=== PATIENT | female | born 1955 | race Caucasian/White ===

== ENCOUNTER 2018-10-28 14:52 | Observation (INO) | payer BC ==
--- OUTSIDE RECORDS SUMMARY | 2018-10-28 14:59 | XMS REPORT | Clinical Summary ---
:1955 Author Organization [facility] Address [address] [place] [address] Care Team Providers Name Role Phone Asked, No Pcp Primary Care Provider Unavailable Allergies Not on File Medications Not on file Active Problems Not on file Encounters Date Type Specialty Care Team Description 12/21/2017 Hospital Encounter Procedural Love Durant MD 12/14/2017 Hospital Encounter Procedural [facility] Cardiology G., MD unspecified type 12/14/2017 Hospital Encounter Procedural [facility] G., MD unspecified type 11/29/2017 Transcribe Orders Access Love Durant G., MD unspecified type (Primary Dx) after 10/27/2017 Social History Tobacco Use Types Packs/Day Years Used Date Never Assessed Sex Assigned at Date Recorded Not on file Job Start Date Occupation Industry Not on file Not on file Not on file Travel History Travel Start Travel End No recent travel history available. Last Filed Vital Signs Not on file Plan of Treatment Health Maintenance Due Date Last Done Comments BREAST CANCER SCREENING 2006 COLONOSCOPY SCREENING 2006 SHINGLES VACCINES (#1) 2006 INFLUENZA VACCINE 11/28/2018 Procedures Procedure Name Priority Date/Time Associated Comments Diagnosis NM MYOCARDIAL PERFUSION Routine 12/21/2017 11:41 Chest pain, Results for this STRESS REST 2 DAY AM CDT unspecified type procedure are in the results section. CV STRESS TEST NUCLEAR Routine 12/14/2017 2:09 Chest pain, Results for this CARDIO PM CDT unspecified type procedure are in the results section. ECHOCARDIOGRAM 2D Routine 12/14/2017 11:26 Chest pain, Results for this COMPLETE W MMODE AM CDT unspecified type procedure are in SPECTRAL COLOR DOPPLER the results (86320) section. after 10/27/2017 Results Cv myocardial perfusion (12/21/2017 11:41 AM CDT) Specimen Narrative Performed At [facility] Nuclear Cardiology and Cardiac CT [address] [address] Myocardial Perfusion Imaging Report Stress ECG tracings are available in [employer] and [employer] All ECG interpretations are included in this report Pat.Name:RASHEED CRANE MPat.ID:[id number] St.Date: 12/14/2017 Refer.MD:LOVE DURANT MD Exam Time: 10:40:00 AM Study Type:Myocardial Perfusion Imaging Height:64inDOBAge: 1955,62Y Sex: FEMALEBP:138/63 HR:68 bpm Nuclear Tech:Dafne Clark [facility]/Inna Andrade [facility],[place]/Kamaljit Osorio [facility] Pat. Stat.:OutpatientNuclear Event ID:[id number] Order ID:[id number] Reason for Study:Chest pain, unspecified* History / Clinical:COPD, Hyperlipidemia, Hypertension, Multiple DVT's Procedures:Two Day Stress / Rest Risk Factors:Hyperlipidemia, Hypertension, Family history of cardiovascular disease Clinical Symptoms:Regadenoson Physical Exam:S1, S2 Medications:xarelto, victoza, methotrexate, prednisone, protonix, spironilactone, allopurinol, synthroid SUMMARY: SCINTIGRAPHIC RESULTS Perfusion Defect Size (% LV) 0 % Total 0 % Ischemia 0 % Scar Left Ventricular Perfusion Results There is normal tracer distribution during stress and rest. Gated SPECT Results The post-stress left ventricular ejection fraction is 52 % with normal regional wall motion and left ventricular thickening.Left ventricular end-diastolic volume is 92 ml; end-systolic volume is44 ml. The left ventricle is of normal size at stress and at rest.The right ventricle is of normal size with normal wall motion. Conclusion Normal regadenoson Tc-99m tetrofosmin myocardial perfusion study. The left ventricular ejection fraction is normal. The mild reduction in anteroapical wall counts is probably due to breast attenuation artifact rather than coronary artery disease. Comments Patients with a normal stress myocardial perfusion study have a low (< 1%) annual risk of cardiac or nonfatal myocardial infarction. Study Quality/Artifacts The study quality is good. Comparison to Previous Study None available. STRESS: Baseline Vital Signs:Intervention: Regadenoson 0.4mg/5ml IV over 10 seconds followed by radiotracer injection and 5ml saline flush ECG: Normal Sinus Rhythm, Incomplete right bundle branch block HR:68 BP:138/63 Stress Test Results: Target HR: 135 Symptoms and Complications: Arrhythmias: None Terminated: As per Regadenoson protocol Symptoms:Headache, Shortness of breath Complications: none Conclusions: Normal heart rate response to pharmacological stress, Normal blood pressure response to pharmacological stress Stress ECG Interp: No ischemic ST segment change occurred with stress. Signed 12/21/2017 02:50 PM Jaylin Ruggiero MD Procedure Note Interface, Radiology Results In - 12/21/2017 2:50 PM CDT Nuclear Cardiology and Cardiac CT [address] [place] [address] Myocardial Perfusion Imaging Report Stress ECG tracings are available in [employer] and [employer] All ECG interpretations are included in this report Pat.Name: RASHEED CRANE Pat.ID: [id number] .Date: 12/14/2017 Refer.MD: LOVE DURANT MD Exam Time: 10:40:00 AM Study Type:Myocardial Perfusion Imaging Height: 64in Age: 5 1955,62Y Sex: FEMALE BP: 138/63 HR: 68 bpm Nuclear Tech:ANNA Lindsay/Inna GUILLENMT,[place]/Kamaljit Osorio [facility] Pat. Stat.:Outpatient Nuclear Event ID:[id number] Order ID: [id number] Reason for Study:Chest pain, unspecified* History / Clinical:COPD, Hyperlipidemia, Hypertension, Multiple DVT's Procedures:Two Day Stress / Rest Risk Factors:Hyperlipidemia, Hypertension, Family history of cardiovascular disease Clinical Symptoms:Regadenoson Physical Exam:S1, S2 Medications:xarelto, victoza, methotrexate, prednisone, protonix, spironilactone, allopurinol, synthroid SUMMARY: SCINTIGRAPHIC RESULTS Perfusion Defect Size (% LV) 0 % Total 0 % Ischemia 0 % Scar Left Ventricular Perfusion Results There is normal tracer distribution during stress and rest. Gated SPECT Results The post-stress left ventricular ejection fraction is 52 % with normal regional wall motion and left ventricular thickening. Left ventricular end-diastolic volume is 92 ml; end-systolic volume is 44 ml. The left ventricle is of normal size at stress and at rest. The right ventricle is of normal size with normal wall motion. Conclusion Normal regadenoson Tc-99m tetrofosmin myocardial perfusion study. The left ventricular ejection fraction is normal. The mild reduction in anteroapical wall counts is probably due to breast attenuation artifact rather than coronary artery disease. Comments Patients with a normal stress myocardial perfusion study have a low (< 1%) annual risk of cardiac or nonfatal myocardial infarction. Study Quality/Artifacts The study quality is good. Comparison to Previous Study None available. STRESS: Baseline Vital Signs: Intervention: Regadenoson 0.4mg/5ml IV over 10 seconds followed by radiotracer injection and 5ml saline flush ECG: Normal Sinus Rhythm, Incomplete right bundle branch block HR: 68 BP: 138/63 Stress Test Results: Target HR: 135 Symptoms and Complications: Arrhythmias: None Terminated: As per Regadenoson protocol Symptoms: Headache, Shortness of breath Complications: none Conclusions: Normal heart rate response to pharmacological stress, Normal blood pressure response to pharmacological stress Stress ECG Interp: No ischemic ST segment change occurred with stress. Signed 12/21/2017 02:50 PM Jaylin Ruggiero MD Performing Organization Address [facility] Phone Number [facility] [address] [place] [address] Cv exercise treadmill stress (no imaging) (12/14/2017 2:09 PM CDT) Resting HR 70 H MUSE Resting BP 138 H MUSE Peak MET Achieved 1.0 H MUSE Protocol Name [facility] MUSE Time in Exercise 00:01:00 [facility] MUSE Phase Max Systolic BP 170 [facility] MUSE Max Diastolic BP 82 [facility] MUSE Max Heart Rate 90 [facility] MUSE Max Predicted Heart 159 [facility] MUSE Rate Target HR Formula (220 - Age)*100% [facility] MUSE Test Indication chest pain [facility] MUSE Stress Test Waveform interpreted in [facility] MUSE Impression report associated with image study. No interpretation is provided as part of this Stress ECG report.-Electronically Signed By Nicolas BUENO, Jose Foss ([id number]), city editor Judith Hernandez ([id number]) on 12/14/2017 12:10:09 PM Target HR 135.15 bpm [facility] MUSE Specimen Performing Organization Address [facility] Phone Number [facility] MUSE [address] [place] [address] Echocardiogram complete w contrast and 3D if needed (12/14/2017 11:26 AM CDT) Specimen Narrative Performed At [facility] Echocardiography Report [address]Name:RASHEED CRANE [facility].ID:[id number] .Date: 12/14/2017 Refer.MD:LOVE DURANT MD Exam Time: 9:19:00 AMStudy Type:Routine Echo Height:64inWeight: 318lb BSA: 2.38 m2 DOBAge:1955,62Y Sex: FEMALEHR:69 bpm Sonogrphr: COSTA Vicente Pat. Stat.:Outpatient Study Status:Final Echo Event ID:[id number] Order ID:[id number] Reason for Study:CP Procedures:2D Echo, Colorflow Doppler SUMMARY: LV EF is normal. Overall wall motion is normal. RV systolic function is normal. FINDINGS: LV: LV size is normal. LV EF is normal. Overall wall motion is normal.Estimated EF is 60-64%. RV: RV size is normal. RV systolic function is normal. LA: LA size is normal. RA: RA size is normal. AO: Aortic root diameter is normal. THEO: No pericardial effusion. AV: Focal thickening of AV leaflets. MV: No structural MV abnormalities noted. PV: No structural PV abnormalities noted. TV: No structural TV abnormalities noted. Ortega: Unable to assess diastolic function. Other:Insufficient TR jet to estimate PA systolic pressure. MEASUREMENTS: 2D Paras[place] Ao An1.6 cmLVPWd0.7 cm LVOT 2.1 cmLA Ds3.8 cm LVIDd5.4 cmIndex2.3 cm/m Ao Rtd 3.4 cm Index1.4 cm/m LVIDs3.2 cmLV Mlvz242.9 g(87-129) LV%fs 40.7 % LVM Index 53.3 g/m2 IVSd 0.6 cmRWT0.3 LA Sng Plane LA Area 20.1 cm2(8.8-23.4) LA Vol56.6 ml Index23.8 ml/m LA LngAx 5.7 cm RA Sng Plane RA Area 15 cm2(8.3-19.5) RA Vol40.5 ml Index17 ml/m RA LngAx 4.4 cm DOPPLER LVOT Stroke Vol LVOT TVI25.1 cmLVOT CO3.9 l/min LVOT Tm357 msecLVOT CI1.6 l/m/m2 LVOT SV 57.6 mlHR68 bpm Signed 12/17/2017 11:41 AM Solis Fermin M.D. Procedure Note Interface, Radiology Results In - 12/17/2017 11:42 AM CDT Echocardiography Report [address] [address] Pat.Name: RASHEED CRANE Pat.ID: [id number] .Date: 12/14/2017 Refer.MD: LOVE DURANT MD Exam Time: 9:19:00 AM Study Type:Routine Echo Height: 64in Weight: 318lb BSA: 2.38 m2 Age: 6 1955,62Y Sex: FEMALE HR: 69 bpm Sonogrphr: COSTA Vicente Pat. Stat.:Outpatient Study Status:Final Echo Event ID:[id number] Order ID: [id number] Reason for Study:CP Procedures:2D Echo, Colorflow Doppler SUMMARY: LV EF is normal. Overall wall motion is normal. RV systolic function is normal. FINDINGS: LV: LV size is normal. LV EF is normal. Overall wall motion is normal. Estimated EF is 60-64%. RV: RV size is normal. RV systolic function is normal. LA: LA size is normal. RA: RA size is normal. AO: Aortic root diameter is normal. THEO: No pericardial effusion. AV: Focal thickening of AV leaflets. MV: No structural MV abnormalities noted. PV: No structural PV abnormalities noted. TV: No structural TV abnormalities noted. Ortega: Unable to assess diastolic function. Other: Insufficient TR jet to estimate PA systolic pressure. MEASUREMENTS: 2D Parasternal [place] Ao An 1.6 cm LVPWd 0.7 cm LVOT 2.1 cm LA Ds 3.8 cm LVIDd 5.4 cm Index 2.3 cm/m Ao Rtd 3.4 cm Index 1.4 cm/m LVIDs 3.2 cm LV Mass 126.9 g (87-129) LV%fs 40.7 % LVM Index 53.3 g/m2 IVSd 0.6 cm RWT 0.3 LA Sng Plane LA Area 20.1 cm2 (8.8-23.4) LA Vol 56.6 ml Index 23.8 ml/m LA LngAx 5.7 cm RA Sng Plane RA Area 15 cm2 (8.3-19.5) RA Vol 40.5 ml Index 17 ml/m RA LngAx 4.4 cm DOPPLER LVOT Stroke Vol LVOT TVI 25.1 cm LVOT CO 3.9 l/min LVOT Tm 357 msec LVOT CI 1.6 l/m/m2 LVOT SV 57.6 ml HR 68 bpm Signed 12/17/2017 11:41 AM Solis Fermin M.D. Performing Organization Address [facility] Phone Number [facility] [phone] [place] [address] after 10/27/2017 Advance Directives Patient has advance care planning documents on file. For more information, please contact:[facility] [place] [address]
--- OUTSIDE RECORDS SUMMARY | 2018-10-28 14:59 | XMS REPORT ---
:1955 [facility] Address [address] [place] [address] Care Team Providers Name Role Phone CHETAN ANDERSON Unavailable Unavailable Problems This patient has no known problems. Allergies, Adverse Reactions, Alerts This patient has no known allergies or adverse reactions. Medications This patient has no known medications. Results Test Description Test Time Test Comments Text Results Atomic Results Result Comments Glycosylated Hemoglobin 2016-08-11 01:46:00 Test Item Value Reference Range Comments HBA1c (test code=HBA1C) 6.2 % 4.8-5.9 Thyroid Stimulating Hormone (TSH)2016-08-10 22:24:00 Test Item Value Reference Range Comments TSH (test code=TSH) 0.93 mIU/mL 0.270-4.200 Hepatic Function [id number] 21:51:00 Test Item Value Reference Range Comments Prot Total (test code=TP) 7.7 g/dL 6.4-8.3 Albumin (test code=ALB) 4.3 g/dL 3.5-5.2 A/G Ratio (test code=AGRATIO) 1.3 Ratio Globulin (test code=GLOB) 3.4 2.9-3.1 Bili Total (test code=TBIL) 0.5 mg/dL 0.1-0.9 Bili Direct (test code=DBIL) <0.2 mg/dL 0.0-0.3 Bili Indirect (test code=IBIL) 0.4 Alk Phos (test code=APHOS) 107 U/L 35-104 AST (test code=AST) 21 U/L 1-32 ALT (test code=ALT) 26 U/L 1-33 Lipid [id number] 21:51:00 Test Item Value Reference Range Comments Cholesterol (test 182 mg/dL 0-200 code=CHOL) Triglycerides (test 211 mg/dL 9-200 Unable to calculate, Trig >400 code=TRIG) HDL (test code=HDL) 47 mg/dL 50-60 Chol/HDL (test 3.9 Ratio 0.0-4.4 code=CHOLPHDL) LDL, Calculated (test 93 mg/dL 0-130 (NOTE)RISK OF HEART code=LDLC) DISEASEPublished by [place] Heart AssociationAnalyte Optimal Boderline Increased RiskCHOL <200 200-239 >240TRIG <150 150-199 >200HDL Male: >60 <40HDL Female: >60 <50LDL <100 130-159 >160LDL NEAR OPTIMAL IS 100-129 VLDL (test code=VLDL) 42 mg/dL 5-40 LDL/HDL (test code=LDLPHDL) 2 Comprehensive Metabolic [id number] 21:51:00 Test Item Value Reference Range Comments Sodium (test code=NA) 141 mmol/L 135-145 Potassium (test code=K) 4.5 mmol/L 3.5-5.1 Chloride (test code=CL) 100 mmol/L 98-105 Carbon Dioxide (test 26 mmol/L 22-29 code=CO2) Glucose (test code=GLU) 110 mg/dL 70-115 Blood Urea Nitrogen (test 32 mg/dL 6-20 code=BUN) Creatinine (test 1.1 mg/dL 0.5-0.9 code=CREAT) Calcium (test code=CA) 9.8 mg/dL 8.3-10.5 Prot Total (test code=TP) 7.7 g/dL 6.4-8.3 Albumin (test code=ALB) 4.3 g/dL 3.5-5.2 A/G Ratio (test 1.3 Ratio code=AGRATIO) Globulin (test code=GLOB) 3.4 2.9-3.1 Bili Total (test 0.5 mg/dL 0.1-0.9 code=TBIL) Alk Phos (test 107 U/L 35-104 code=APHOS) AST (test code=AST) 21 U/L 1-32 ALT (test code=ALT) 26 U/L 1-33 BUN/Creatinine Ratio 29.1 (test code=BCRATIO) Anion Gap (test 15 mmol/L 7-16 code=AGAP) Estimated GFR (test 54 mL/min/1.73m2 eGFR (estimated Glomerular code=GFR) Filtration Rate) is an estimated value,calculated from the patient's serum creatinine using the MDRD equation.It is NOT the patient's actual GFR. The eGFR provides a more clinicallyuseful measure of kidney disease than serum creatinine alone.This calculation takes sex and race into account, if the informationis provided. If the race is not provided, and the patient isAfrican-[place], multiply by 1.212. If sex is not provided, and thepatient is female, multiply by 0.742. Results for patients <18 years ofage have not been validated by the MDRD study and should be interpretedwith caution.eGFR Result Interpretation:eGFR > or=60 is in the Normal RangeeGFR < 60 may mean kidney diseaseeGFR < 15 may mean kidney failureRanges recommended by the National Kidney Foundation,http://nkdep.nih .gov CBC with [id number] 20:27:00 Test Item Value Reference Range Comments WBC (test code=WBC) 9.6 K/cumm 4.4-10.5 RBC (test code=RBC) 4.54 M/cumm 3.75-5.20 Hemoglobin (test code=HGB) 13.7 gm/dL 12.2-14.8 Hematocrit (test code=HCT) 44.1 % 36.5-44.4 MCV (test code=MCV) 97.0 fL 80-100 MCH (test code=MCH) 30.1 pg 27.0-32.5 MCHC (test code=MCHC) 31.0 g/dL 32.0-37.5 RDW (test code=RDW) 16.1 % 11.5-14.5 Platelet Count (test code=PLTCT) 396 K/cumm 140-440 MPV (test code=MPV) 9.4 fL Diff Method (test code=DIFFM) Auto Neutrophil (test code=NEUT) 63.2 % 36-70 Lymphocyte (test code=LYMPH) 23.9 % 12-44 Monocyte (test code=MONO) 9.1 % 0-11 Eosinophil (test code=EOS) 3.4 % 0-7 Basophil (test code=BASO) 0.4 % 0-2 Neutro Abs (test code=ANEUT) 6.1 K/cumm 1.6-7.4 Lymph Abs (test code=ALYMPH) 2.3 K/cumm 0.5-4.6 Whitman Abs (test code=AMONO) 0.9 K/cumm 0.0-1.2 Eos Abs (test code=AEOS) 0.33 K/cumm 0.00-0.74 Baso Abs (test code=ABASO) 0.0 K/cumm 0.00-0.21
--- NOTE | 2018-10-28 16:02 | RAD REPORT ---
EXAM DESCRIPTION: Jose Single View10/28/2018 3:55 pm CLINICAL HISTORY: fever COMPARISON: 2016 FINDINGS: The lungs appear clear of acute infiltrate. The heart is mildly enlarged IMPRESSION: No acute abnormalities displayed
--- NOTE | 2018-10-28 16:05 | RAD REPORT ---
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
[2018-10-28 16:10] LABS: Absolute Lymphocytes (CBC) 0.7 K/uL (0.7-4.9); Basophils % 0.1 % (0-1.3); Eosinophils % 0.1 % (0-4.4); Lymphocytes % 3.8 % (15.3-44.8); MPV 7.5 fL (7.6-11.3); Monocytes % 12.1 % (3.3-12.3); RBC Red Blood Cell Count 4.31 M/uL (3.86-4.86)
[2018-10-28] MEDS ORDERED: ONDANSETRON 4 MG/2 ML VIAL ONE ×2 (16:15→19:47)
[2018-10-28 16:21] LABS: Protime INR 1.49
[2018-10-28] MEDS ORDERED: NA CHLORIDE 0.9% 1,000 ML ONE ×2 (16:40→19:48)
[2018-10-28 16:42] LABS: Albumin 2.7 g/dL (3.4-5.0); Bilirubin Direct 0.3 mg/dL (0-0.2); Bilirubin Total 0.8 mg/dL (0.2-1.0); CKMB Creatine Kinase MB 1.7 ng/mL (0.3-3.6); Potassium 4.3 mmol/L (3.5-5.1); Protein, Total 7.5 g/dL (6.4-8.2)
[2018-10-28 16:45] LABS: Troponin (Emerg Dept Use Only) 0.58 ng/mL (0.0-0.045)
--- NOTE | 2018-10-28 18:30 | ER ---
Nurse's Notes [facility] Name: Lauren Rdz Age: 63 yrs Sex: Female : 1955 Arrival Date: 10/28/2018 Time: 14:53 Bed 14 Private MD: Diagnosis: Cellulitis of left lower limb-left foot cellulitis Presentation: 10/28 14:54 Presenting complaint: EMS states: left foot pain. Transition of care: patient was not ls4 received from another setting of care. Onset of symptoms was October 25, 2018 at 12:00. Risk Assessment: Do you want to hurt yourself or someone else? Patient reports no desire to harm self or others. Initial Sepsis Screen: Does the patient meet any 2 criteria? No. Patient's initial sepsis screen is negative. Does the patient have a suspected source of infection? No. Patient's initial sepsis screen is negative. Care prior to arrival: None. pt refused zofran im and iv. 14:54 Method Of Arrival: EMS: [facility] 14:54 Acuity: RACHID 3 ls4 Triage Assessment: 14:54 General: Appears in no apparent distress. Behavior is calm, cooperative. Pain: ls4 Complains of pain in left foot Pain currently is 10 out of 10 on a pain scale. Neuro: No deficits noted. Cardiovascular: No deficits noted. Cardiovascular: Denies chest pain. Respiratory: No deficits noted. GI: Abdomen is obese, Bowel sounds present X 4 quads. Derm: Abscess located on arch of left foot is large area of swelling with 1 inch jagged puncture like abscess. Musculoskeletal: Circulation, motion, and sensation intact. Capillary refill < 3 seconds, Range of motion: limited in all extremities. Historical: - Allergies: 15:05 No Known Allergies; ls4 - Home Meds: 16:59 allopurinol 100 mg Oral tab 1 tab once daily [Active]; [place] Thyroid 60 mg Oral tab ls4 daily [Active]; Crestor Oral [Active]; Dexilant 60 mg Oral CpDB 1 cap once daily [Active]; folic acid 1 mg Oral tab 1 tab once daily [Active]; - PMHx: 15:05 Diabetes - IDDM; DVT; Hyperlipidemia; Hypertension; Hypothyroidism; ls4 - PSHx: 15:05 Tubal ligation; eye sx; ls4 - Immunization history:: Adult Immunizations up to date, Last tetanus immunization: up to date. - Social history:: Smoking status: Patient/guardian denies using tobacco. - Ebola Screening: : Patient negative for fever greater than or equal to 101.5 degrees Fahrenheit, and additional compatible Ebola Virus Disease symptoms Patient denies exposure to infectious person Patient denies travel to an Ebola-affected area in the 21 days before illness onset No symptoms or risks identified at this time. Screenin:06 Abuse screen: Denies threats or abuse. Denies injuries from another. Nutritional ls4 screening: No deficits noted. Tuberculosis screening: No symptoms or risk factors identified. Fall Risk None identified. Assessment: 16:20 Reassessment: Patient appears in no apparent distress at this time. Patient and/or ls4 family updated on plan of care and expected duration. Pain level reassessed. Patient is alert, oriented x 3, equal unlabored respirations, skin warm/dry/pink. 19:00 Reassessment: Patient appears in no apparent distress at this time. Patient and/or jb4 family updated on plan of care and expected duration. Pain level reassessed. Patient is alert, oriented x 3, equal unlabored respirations, skin warm/dry/pink. 20:23 Reassessment: Patient appears in no apparent distress at this time. Patient and/or jb4 family updated on plan of care and expected duration. Pain level reassessed. Patient is alert, oriented x 3, equal unlabored respirations, skin warm/dry/pink. Prior nurse started vancomycin and set to infuse over 1hr, providers orders to infuse over 2hrs, provider and charge nurse notified. Infusion slowed to ordered rate. 20:53 Reassessment: Attempted to call report, on hold for 5 minutes, will retry in 10 minutes.jb4 21:55 Reassessment: Patient appears in no apparent distress at this time. Patient and/or jb4 family updated on plan of care and expected duration. Pain level reassessed. Patient is alert, oriented x 3, equal unlabored respirations, skin warm/dry/pink. PT transferred to 4th floor via stretcher, IV site dry and intact, IV flushes easily and has good blood return. Vital Signs: 15:05 BP 120 / 53; Pulse 99; Resp 14; Temp 99.1; Pulse Ox 99% on R/A; Weight 136.08 kg (R); ls4 Pain 10/10; 16:22 BP 113 / 81; Pulse 94; Resp 20; Pulse Ox 97% on R/A; ls4 17:36 BP 106 / 53; Pulse 95; Resp 18; Temp 99.2(TE); Pulse Ox 93% on R/A; mh5 19:07 BP 130 / 89; Pulse 85; Resp 18; Temp 97.8(TE); Pulse Ox 95% on R/A; mh5 19:42 BP 103 / 59; Pulse 89; Resp 18; Pulse Ox 98% on R/A; jb4 20:30 BP 103 / 56; Pulse 88; Resp 18; Temp 98.8(O); Pulse Ox 98% on R/A; jb4 21:35 BP 104 / 46; Pulse 78; Resp 18; Pulse Ox 98% on R/A; jb4 ED Course: 14:53 Patient arrived in ED. ls4 14:57 Triage completed. ls4 15:04 [facility] Urias [facility] pm1 15:04 Alex Allen MD is Attending Physician. pm1 15:05 Arm band placed on. ls4 15:05 Patient has correct armband on for positive identification. Bed in low position. Call ls4 light in reach. Side rails up X 1. satellite project site monitor on. Pulse ox on. NIBP on. 15:05 Warm blanket given. Pillow given. ls4 15:06 No provider procedures requiring assistance completed. ls4 15:26 Crystal Springer, RN is Primary Nurse. ls4 15:55 Chest Single View XRAY In Process Unspecified. EDMS 15:55 Foot Left 3 View In Process Unspecified. EDMS 16:21 Initial lab(s) drawn, by tn, sent to lab. Inserted saline lock: 20 gauge in right ls4 antecubital area, using aseptic technique. Blood collected. 16:45 Notified ED physician of Notified Nurse Practitioner and/or Physician Tester Armature Or Fields of a ls4 critical lab result(s), troponin 0.58. 16:51 C-Reactive Protein Sent. ls4 16:51 Sed Rate Sent. ls4 18:28 Sunny Rayo MD is Hospitalizing Provider. pm1 21:35 Patient admitted, IV remains in place. jb4 Administered Medications: 16:05 Drug: NS 0.9% 1000 ml Route: IV; Rate: 1000 ml; Site: right antecubital; ls4 16:05 Drug: Zofran 4 mg Route: IVP; Site: right antecubital; ls4 16:35 Follow up: Response: No adverse reaction; No change in condition ls4 16:05 Not Given (Patient Refused): morphine 4 mg IVP once ls4 19:00 Drug: vancoMYCIN 1 grams Route: IVPB; Infused Over: 2 hrs; Site: right antecubital; ls4 20:32 Follow up: Response: No adverse reaction; IV Status: Completed infusion; IV Intake: jb4 250ml 19:00 Drug: Tylenol 650 mg Route: PO; ls4 21:59 Follow up: Response: No adverse reaction jb4 19:00 Drug: Ibuprofen 600 mg Route: PO; ls4 21:59 Follow up: Response: No adverse reaction jb4 19:40 Drug: NS 0.9% 1000 ml Route: IV; Rate: 1000 ml; Site: right antecubital; jb4 21:39 Follow up: Response: No adverse reaction; IV Status: Completed infusion; IV Intake: jb4 1000ml 19:41 Drug: Zofran 4 mg Route: IVP; Site: right antecubital; jb4 21:59 Follow up: Response: No adverse reaction jb4 19:51 CANCELLED (Duplicate Order): NS 0.9% 1000 ml IV at 1 bolus Per protocol; 1000 mL bolus jb4 20:39 Drug: LevaQUIN 500 mg Volume: 100 ml; Route: IVPB; Infused Over: 60 mins; Site: right jb4 antecubital; 21:39 Follow up: Response: No adverse reaction; IV Status: Completed infusion; IV Intake: jb4 100ml Intake: 20:32 IV: 250ml; Total: 250ml. jb4 21:39 IV: 1000ml; Total: 1250ml. jb4 21:39 IV: 100ml; Total: 1350ml. jb4 Outcome: 18:28 Decision to Hospitalize by Provider. pm1 21:35 Admitted to Med/surg accompanied by nurse, family with patient, via stretcher, room jb4 421, with chart, Report called to JARET Carrasco 21:35 Condition: stable 21:35 Instructed on the need for admit, Demonstrated understanding of instructions. 22:00 Patient left the ED. jb4 Signatures: Dispatcher [employer] EDMS William Urias, ESTHELA BELT PUNCHER pm1 Milan Mcmahan RN RN jb4 Zari Capone 5 Crystal Springer RN RN ls4
--- NOTE | 2018-10-28 18:30 | EDPHYS ---
Physician Documentation [facility] Name: Lauren Rdz Age: 63 yrs Sex: Female : 1955 Arrival Date: 10/28/2018 Time: 14:53 Bed 14 Private MD: ED Physician Alex Allen HPI: 10/28 15:18 This 63 yrs old Female presents to ER via EMS with complaints of Left Foot pm1 Pain. 15:18 The patient presents with pain, swelling. The complaints affect the dorsum of left pm1 foot. Context: resulted from history of diabetic foot ulcers, the patient is not able to bear weight, typically is able to walk with her chronic left foot ulcer. Onset: The symptoms/episode began/occurred 3 day(s) ago. Modifying factors: The symptoms are alleviated by elevating leg, the symptoms are aggravated by weight bearing. Associated signs and symptoms: Pertinent negatives calf tenderness, fever. Treatment prior to arrival includes: no previous treatment. Severity of symptoms: in the emergency department the symptoms are actually worse. Chronic swelling to palmar aspect of left foot that has been there for 5 years. No change. The new change in her left foot is the redness and swelling to the dorsal aspect of her left ffot. The patient has been recently seen by a physician: with similar presenting complaints, Dr. Dominguez 2 weeks ago. Historical: - Allergies: 15:05 No Known Allergies; ls4 - Home Meds: 16:59 allopurinol 100 mg Oral tab 1 tab once daily [Active]; [place] Thyroid 60 mg Oral tab ls4 daily [Active]; Crestor Oral [Active]; Dexilant 60 mg Oral CpDB 1 cap once daily [Active]; folic acid 1 mg Oral tab 1 tab once daily [Active]; - PMHx: 15:05 Diabetes - IDDM; DVT; Hyperlipidemia; Hypertension; Hypothyroidism; ls4 - PSHx: 15:05 Tubal ligation; eye sx; ls4 - Immunization history:: Adult Immunizations up to date, Last tetanus immunization: up to date. - Social history:: Smoking status: Patient/guardian denies using tobacco. - Ebola Screening: : Patient negative for fever greater than or equal to 101.5 degrees Fahrenheit, and additional compatible Ebola Virus Disease symptoms Patient denies exposure to infectious person Patient denies travel to an Ebola-affected area in the 21 days before illness onset No symptoms or risks identified at this time. ROS: 15:18 Constitutional: Negative for fever, chills, and weight loss, Eyes: Negative for injury, pm1 pain, redness, and discharge, ENT: Negative for injury, pain, and discharge, Neck: Negative for injury, pain, and swelling, Cardiovascular: Negative for chest pain, palpitations, and edema, Respiratory: Negative for shortness of breath, cough, wheezing, and pleuritic chest pain, Abdomen/GI: Negative for abdominal pain, nausea, vomiting, diarrhea, and constipation, Back: Negative for injury and pain, : Negative for injury, bleeding, discharge, and swelling. 15:18 Neuro: Negative for headache, weakness, numbness, tingling, and seizure. 15:18 MS/extremity: Positive for pain, of the dorsum of left foot. 15:18 Skin: Positive for cellulitis, swelling, of the dorsum of left foot. Exam: 15:18 Constitutional: This is a well developed, well nourished patient who is awake, alert, pm1 and in no acute distress. Head/Face: Normocephalic, atraumatic. Eyes: Pupils equal round and reactive to light, extra-ocular motions intact. Lids and lashes normal. Conjunctiva and sclera are non-icteric and not injected. Cornea within normal limits. Periorbital areas with no swelling, redness, or edema. ENT: Nares patent. No nasal discharge, no septal abnormalities noted. Tympanic membranes are normal and external auditory canals are clear. Oropharynx with no redness, swelling, or masses, exudates, or evidence of obstruction, uvula midline. Mucous membranes moist. Neck: Trachea midline, no thyromegaly or masses palpated, and no cervical lymphadenopathy. Supple, full range of motion without nuchal rigidity, or vertebral point tenderness. No Meningismus. Chest/axilla: Normal chest wall appearance and motion. Nontender with no deformity. No lesions are appreciated. Cardiovascular: Regular rate and rhythm with a normal S1 and S2. No gallops, murmurs, or rubs. Normal PMI, no JVD. No pulse deficits. Respiratory: Lungs have equal breath sounds bilaterally, clear to auscultation and percussion. No rales, rhonchi or wheezes noted. No increased work of breathing, no retractions or nasal flaring. Abdomen/GI: Soft, non-tender, with normal bowel sounds. No distension or tympany. No guarding or rebound. No evidence of tenderness throughout. Back: No spinal tenderness. No costovertebral tenderness. Full range of motion. 15:18 Skin: Appearance: swelling, noted on the dorsum of left foot, erythema, cellulitis, on the dorsum of left foot, Swelling to arch of left foot with central ulceration. No drainage, fluctuance or surrounding erythema, cellulitis to arch of left foot. 15:18 Neuro: Orientation: is normal, Motor: is normal, Sensation: is normal, no obvious gross deficits. Vital Signs: 15:05 BP 120 / 53; Pulse 99; Resp 14; Temp 99.1; Pulse Ox 99% on R/A; Weight 136.08 kg (R); ls4 Pain 10/10; 16:22 BP 113 / 81; Pulse 94; Resp 20; Pulse Ox 97% on R/A; ls4 17:36 BP 106 / 53; Pulse 95; Resp 18; Temp 99.2(TE); Pulse Ox 93% on R/A; mh5 19:07 BP 130 / 89; Pulse 85; Resp 18; Temp 97.8(TE); Pulse Ox 95% on R/A; mh5 19:42 BP 103 / 59; Pulse 89; Resp 18; Pulse Ox 98% on R/A; jb4 20:30 BP 103 / 56; Pulse 88; Resp 18; Temp 98.8(O); Pulse Ox 98% on R/A; jb4 21:35 BP 104 / 46; Pulse 78; Resp 18; Pulse Ox 98% on R/A; jb4 MDM: 15:07 Patient medically screened. pm1 18:27 Data reviewed: vital signs. Data interpreted: Pulse oximetry: on room air is 99 %. pm1 Interpretation:. Counseling: I had a detailed discussion with the patient and/or guardian regarding: the historical points, exam findings, and any diagnostic results supporting the discharge/admit diagnosis, lab results, radiology results, the need for further work-up and treatment in the hospital. 19:01 Physician consultation: Sunny Rayo MD was contacted at 19:01, regarding admission, pm1 patient's condition, and will see patient. 10/28 15:18 Order name: C-Reactive Protein pm10/28 15:18 Order name: Sed Rate pm10/28 15:18 Order name: Basic Metabolic Panel; Complete Time: 17:10 pm1 10/28 15:18 Order name: Blood Culture Adult (2) pm10/28 15:18 Order name: CBC with Diff; Complete Time: 17:10 pm1 10/28 15:18 Order name: Ckmb; Complete Time: 17:10 pm10/28 15:18 Order name: CPK; Complete Time: 17:10 pm1 10/28 15:18 Order name: Lactate; Complete Time: 17:10 pm1 10/28 15:18 Order name: LFT's; Complete Time: 17:10 pm1 10/28 15:18 Order name: Lipase; Complete Time: 17:10 pm10/28 15:18 Order name: Procalcitonin; Complete Time: 17:10 pm1 10/28 15:18 Order name: Protime (+inr); Complete Time: 17:10 pm10/28 15:18 Order name: Ptt, Activated; Complete Time: 17:10 pm1 10/28 15:18 Order name: Troponin (emerg Dept Use Only); Complete Time: 17:10 pm1 10/28 15:18 Order name: Urine Microscopic Only pm10/28 15:18 Order name: Chest Single View XRAY; Complete Time: 16:09 pm1 10/28 15:19 Order name: C-Reactive Protein; Complete Time: 17:10 EDMS 10/28 15:19 Order name: Sedimentation Rate, [place]; Complete Time: 17:10 EDMS 10/28 15:40 Order name: Foot Left 3 View; Complete Time: 16:09 EDMS 10/28 15:18 Order name: Accucheck; Complete Time: 17:21 pm1 10/28 15:18 Order name: Cardiac monitoring; Complete Time: 17:21 pm1 10/28 15:18 Order name: EKG - Nurse/Tech; Complete Time: 17:21 pm1 10/28 15:18 Order name: IV Saline Lock - Large Bore; Complete Time: 17:21 pm1 10/28 15:18 Order name: Labs collected and sent; Complete Time: 17:21 pm10/28 15:18 Order name: O2 Per Protocol; Complete Time: 17:22 pm1 10/28 15:18 Order name: O2 Sat Monitoring; Complete Time: 16:51 pm1 10/28 15:18 Order name: Urine Dipstick-Ancillary (obtain specimen); Complete Time: 16:51 pm1 10/28 16:51 Order name: EKG; Complete Time: 16:51 ls4 10/28 16:51 Order name: EKG - Nurse/Tech; Complete Time: 17:19 ls4 Administered Medications: 16:05 Drug: NS 0.9% 1000 ml Route: IV; Rate: 1000 ml; Site: right antecubital; ls4 16:05 Drug: Zofran 4 mg Route: IVP; Site: right antecubital; ls4 16:35 Follow up: Response: No adverse reaction; No change in condition ls4 16:05 Not Given (Patient Refused): morphine 4 mg IVP once ls4 19:00 Drug: vancoMYCIN 1 grams Route: IVPB; Infused Over: 2 hrs; Site: right antecubital; ls4 20:32 Follow up: Response: No adverse reaction; IV Status: Completed infusion; IV Intake: jb4 250ml 19:00 Drug: Tylenol 650 mg Route: PO; ls4 21:59 Follow up: Response: No adverse reaction jb4 19:00 Drug: Ibuprofen 600 mg Route: PO; ls4 21:59 Follow up: Response: No adverse reaction jb4 19:40 Drug: NS 0.9% 1000 ml Route: IV; Rate: 1000 ml; Site: right antecubital; jb4 21:39 Follow up: Response: No adverse reaction; IV Status: Completed infusion; IV Intake: jb4 1000ml 19:41 Drug: Zofran 4 mg Route: IVP; Site: right antecubital; jb4 21:59 Follow up: Response: No adverse reaction jb4 19:51 CANCELLED (Duplicate Order): NS 0.9% 1000 ml IV at 1 bolus Per protocol; 1000 mL bolus jb4 20:39 Drug: LevaQUIN 500 mg Volume: 100 ml; Route: IVPB; Infused Over: 60 mins; Site: right jb4 antecubital; 21:39 Follow up: Response: No adverse reaction; IV Status: Completed infusion; IV Intake: jb4 100ml Disposition: 10/29 13:10 Co-signature as Attending Physician, Alex Allen MD Available for consultation at ps1 all times. . Disposition: 10/28/18 18:28 Hospitalization ordered by Sunny Rayo for Inpatient Admission. Preliminary diagnosis is Cellulitis of left lower limb - left foot cellulitis. - Bed requested for Telemetry/MedSurg (Inpatient). - Status is Inpatient Admission. jb4 - Condition is Stable. - Problem is new. - Symptoms have improved. UTI on Admission? No Signatures: Dispatcher [employer] EDFL Danay Del Toro, RN RN cg William Urias, HEAD SWAMPER HEAD SWAMPER pm1 Milan Mcmahan, RN RN jb4 Alex Allen MD MD ps1 Crystal Springer RN RN ls4 Corrections: (The following items were deleted from the chart) 10/28 15:40 15:21 Foot Right 3 View+RAD.RAD.BRZ ordered. EDFL EDFL 19:51 19:50 NS 0.9% 1000 ml IV at 1 bolus Per protocol; 1000 mL bolus ordered. jb4 jb4 20:04 18:28 Hospitalization Ordered by Sunny Rayo MD for Inpatient Admission. Preliminary cg diagnosis is Cellulitis of left lower limb - left foot cellulitis. Bed requested for Telemetry/MedSurg (Inpatient). Status is Inpatient Admission. Condition is Stable. Problem is new. Symptoms have improved. UTI on Admission? No. pm1 22:00 20:04 10/28/2018 18:28 Hospitalization Ordered by Sunny Rayo MD for Inpatient jb4 Admission. Preliminary diagnosis is Cellulitis of left lower limb - left foot cellulitis. Bed requested for Telemetry/MedSurg (Inpatient). Status is Inpatient Admission. Condition is Stable. Problem is new. Symptoms have improved. UTI on Admission? No. cg
[2018-10-28] MEDS ORDERED: VANCOMYCIN 1 GM/VIAL ONE (19:20)
[2018-10-28] MEDS ORDERED: NA CHLORIDE 0.9% 250 ML ONE (19:20)
[2018-10-28] MEDS ORDERED: ACETAMINOPHEN 325 MG TABLET ONE (19:20)
[2018-10-28] MEDS ORDERED: IBUPROFEN 200 MG TAB PO ONE (19:21)
--- NOTE | 2018-10-28 19:41 | EKG ---
Test Date: 2018-10-28 Test Time: 17:00:53 Employee Relations Assistant: VASYL MEASUREMENT RESULTS: Intervals: Rate: 94 MS: 160 QRSD: 96 QT: 342 QTc: 427 [place]: P: 59 MS: 160 QRS: 181 T: 48 INTERPRETIVE STATEMENTS: Normal sinus rhythm Right superior axis deviation Nonspecific T wave abnormality Abnormal ECG Compared to ECG 02/18/2016 12:31:22 Right superior axis now present T-wave abnormality now present Electronically Signed On 10-28-18 19:40:15 CDT by Jose Roberto Mayorga
[2018-10-28] MEDS ORDERED: Levofloxacin500mg IV 500 MG/100 ML BAG IV ONE (20:50)
[2018-10-28] MEDS ORDERED: ONDANSETRON 4 MG/2 ML VIAL IV PRN (22:12)
[2018-10-28] MEDS: INSULIN -REGULAR HUMAN 50 UNIT/0.5 ML ML SQ SCH ×2 (22:12)
[2018-10-28] MEDS ORDERED: GLUCAGON 1 MG/VIAL IM PRN (22:12)
[2018-10-28] MEDS ORDERED: VANCOMYCIN/NS 1 gm 1 GM/250 ML BAG IVPB SCH (22:12)
[2018-10-28] MEDS ORDERED: MORPHINE 4 MG/ML SYR IV PRN (22:12)
[2018-10-28] MEDS ORDERED: D50W 25 GM/50 ML SYRINGE IV PRN (22:12)
[2018-10-28] MEDS: NA CHLORIDE 0.9% 1,000 ML IV SCH (22:51)
[2018-10-29] MEDS ORDERED: VANCOMYCIN/NS 1 gm 1 GM/250 ML BAG IVPB ONE (01:30)
[2018-10-29] MEDS ORDERED: VANCOMYCIN 1 GM/VIAL ONE (01:52)
[2018-10-29] MEDS ORDERED: NA CHLORIDE 0.9% 250 ML ONE (01:55)
[2018-10-29 04:59] LABS: Hematocrit 35.6 % (36.0-45.0); MPV 7.6 fL (7.6-11.3)
[2018-10-29 05:04] LABS: Absolute Lymphocytes (CBC) 1.3 K/uL (0.7-4.9); Basophils % 0.2 % (0-1.3); Eosinophils % 1.7 % (0-4.4); Lymphocytes % 8.4 % (15.3-44.8); Monocytes % 12.9 % (3.3-12.3); Potassium 4.5 mmol/L (3.5-5.1); RBC Red Blood Cell Count 3.76 M/uL (3.86-4.86)
[2018-10-29 05:22] LABS: Urine Appearance CLEAR; Urine Blood NEGATIVE (NEG); Urine Color DK YELLOW; Urine Glucose NEGATIVE (NEG); Urine Protein NEGATIVE (NEG); Urine pH 5.5 (5.0-7.0)
[2018-10-29 05:45] LABS: Urine Microscopic Reflex ORDER UMIC
[2018-10-29 05:54] LABS: Urine Bilirubin NEGATIVE (NEG)
[2018-10-29 06:01] LABS: Urine Bacteria <20 /HPF (<20); Urine Culture Reflex Order REFLEXED; Urine RBC NONE SEEN /HPF (NONE SEEN)
[2018-10-29] MEDS: INSULIN -REGULAR HUMAN 50 UNIT/0.5 ML ML SQ SCH ×4 (07:30→20:18)
[2018-10-29] MEDS: NA CHLORIDE 0.9% 1,000 ML IV SCH ×2 (08:19→18:08)
[2018-10-29] MEDS ORDERED: TRAMADOL HCL 50 MG TAB PO PRN ×2 (08:41→20:27)
[2018-10-29] MEDS: FUROSEMIDE 40 MG TABLET PO SCH ×3 (09:00→16:19)
[2018-10-29] MEDS: FOLIC ACID 1 MG TABLET PO SCH (09:19)
[2018-10-29] MEDS: MONTELUKAST 10 MG TAB PO SCH (09:20)
[2018-10-29] MEDS: ALLOPURINOL 100 MG TAB PO SCH (09:20)
[2018-10-29] MEDS: LISINOPRIL 10 MG TAB PO SCH (09:20)
[2018-10-29] MEDS: SPIRONOLACTONE 25 MG TABLET PO SCH (09:20)
[2018-10-29] MEDS: POTASSIUM CL SA 10 MEQ TAB PO SCH ×2 (09:20→20:16)
--- NOTE | 2018-10-29 09:34 | P.HP ---
Certification for Inpatient Patient admitted to: Observation With expected LOS: <2 Midnights Patient will require the following post-hospital care: None Practitioner: I am a practitioner with admitting privileges, knowledge of patient current condition, hospital course, and medical plan of care. Services: Services provided to patient in accordance with Admission requirements found in Title 42 Section 412.3 of the Code of Federal Regulations Patient History Date of Service: 10/29/18 Primary Care Provider: Corina Lee Reason for admission: Cellulitis History of Present Illness: Patient of Corina Gorman. She has a halfway history of charcot's foot. Being treated by Dr. Dominguez(podiatry). However she was noticing some increasing reddness. Was also complainting of fevers and chills. The patient came to the ER. She was found to have an elevated wbc. No worsening of the ulcer on the plantar surface of the foot. However definite cellulitis of the dorsum. Considering her symptoms. She was admittted for iv antibiotics. Allergies No Known Allergies Allergy (Unverified 02/19/15 13:24) Home Medications: Allopurinol 1 tab PO DAILY 02/18/16 Dexlansoprazole [Dexilant] 60 mg PO DAILY 02/18/16 Folic Acid 1 mg PO DAILY 02/18/16 Lisinopril 10 mg PO DAILY 02/18/16 Montelukast [Singulair*] 1 tab PO DAILY 02/18/16 Potassium Chloride 10 meq PO BID 02/18/16 Rivaroxaban [Xarelto] 1 tab PO BEDTIME 02/18/16 Spironolactone 1 tab PO DAILY 02/18/16 Thyroid,Pork [[place] Thyroid] 1 tab PO DAILY 02/18/16 predniSONE [Prednisone*] 1 mg PO TID 02/18/16 Amox/Clavulanate [Augmentin 875-125 Tab] 875 mg PO BID #20 tab 02/24/16 Doxycycline Hyclate 100 mg PO BID #20 tablet 02/24/16 Hydrocodone/Acetaminophen [Hydrocodon-Acetaminophn 10-325] 1 tab PO DAILYPRN PRN 02/24/16 Hydrocodone/Acetaminophen [Lortab 7.5-325 mg Tablet] 1 each PO Q6HR PRN #30 tablet 02/24/16 traMADol HCL [Ultram*] 1 tab PO DAILYPRN PRN 02/24/16 Furosemide [Lasix*] 80 mg PO BID 02/25/16 - Past Medical/Surgical History Has patient received pneumonia vaccine in the past: Yes Diabetic: Yes -: Lymphedema -: PVD -: GERD -: Irregular heart rhythm -: Rheumatoid Arthritis -: Ulcerative Collitis -: Sleep apnea -: Hypothyroidism -: Tubaligation -: Descending aortic filter placement -: Bilateral eye sx -: Endometrial ablation - Family History Father -: Heart disease, Diabetes Mother -: Lung disease Brother -: Cancer - Social History Smoking Status: Former smoker Alcohol use: Yes CD- Drugs: No Caffeine use: No Place of Residence: Home Review of Systems 10-point ROS is otherwise unremarkable Musculoskeletal: Foot Pain (Reddness and swelling of theleft foot. ) Physical Examination - Vital Signs Temperature: 96.8 F Blood Pressure: 113/54 Pulse: 67 Respirations: 20 Pulse Ox (%): 95 - Physical Exam General: Alert, In no apparent distress HEENT: Atraumatic, PERRLA, Mucous membr. moist/pink, EOMI, Sclerae nonicteric Neck: Supple, 2+ carotid pulse no bruit, No LAD, Without JVD or thyroid abnormality Respiratory: Clear to auscultation bilaterally, Normal air movement Cardiovascular: Regular rate/rhythm, Normal S1 S2 Gastrointestinal: Normal bowel sounds, No tenderness Musculoskeletal: Erythema (left foot), Tenderness (left foot ), Warmth (left foot) Integumentary: No rashes, Diabetic ulcer (chronic left foot plantar ulcer) Neurological: Normal gait, Normal speech, Normal strength at 5/5 x4 extr, Normal tone, Normal affect Lymphatics: No axilla or inguinal lymphadenopathy - Studies Laboratory Data (last 24 hrs) 10/28/18 15:53: PT 17.3 H, INR 1.49, APTT 31.7 10/28/18 15:53: WBC 18.7 H, Hgb 13.2, Hct 40.0, Plt Count 377 10/28/18 15:53: Sodium 132 L, Potassium 4.3, BUN 27 H, Creatinine 1.05, Glucose 138 H, Total Bilirubin 0.8, AST 24, ALT 27, Alkaline Phosphatase 119 H, Lipase 55 L Assessment and Plan - Problems (Diagnosis) (1) Cellulitis Current Visit: Yes Status: Acute Plan: Will continue fluids and antibiotics. Will continue fluids. Await cultures. If she continues to improve we can d/c tomorrow. Qualifiers: Site of cellulitis of extremity: lower extremity Laterality: left (2) COPD (chronic obstructive pulmonary disease) Current Visit: Yes Status: Acute Plan: Patient is stable will restart home medications. Pt can use her own. Qualifiers: COPD type: chronic bronchitis Chronic bronchitis type: simple Qualified Code(s): J41.0 - Simple chronic bronchitis (3) Gout Current Visit: Yes Status: Acute Plan: Patient is stable. Will continue allopurinol Qualifiers: Gout site: unspecified site Gout etiology: unspecified cause Chronicity: chronic Presence of tophus: without tophus Qualified Code(s): M1A.9XX0 - Chronic gout, unspecified, without tophus (tophi) (4) Diabetes Current Visit: No Status: Acute Plan: Her last a1c was in the 6 range. Will hold the prednisone. continue sliding scale insulin and accuchecks. Qualifiers: Diabetes mellitus type: type 2 Diabetes mellitus halfway insulin use: without halfway use Diabetes mellitus complication status: with diabetic arthropathy Diabetes mellitus complication detail: with neuropathic arthropathy Qualified Code(s): E11.610 - Type 2 diabetes mellitus with diabetic neuropathic arthropathy (5) Diabetic foot ulcer Current Visit: No Status: Acute Discharge Plan: Home - Advance Directives Does patient have a Living Will: No Does patient have a Durable POA for Healthcare: No - Code Status/Comfort Care Code Status Assessed: No Code Status: Full Code Physician Review: Patient Assessed, Agree with Above Assessment and Plan Critical Care: No Time Spent Managing Pts Care (In Minutes): 35
[2018-10-29] MEDS: COLLAGENASE 30 GM OINTMENT TOP SCH (10:35)
[2018-10-29] MEDS ORDERED: VANCOMYCIN 2 GM in NA CHLORIDE 0.9% 500 ML IVPB SCH ×2 (13:00→18:00)
[2018-10-29] MEDS: ACETAMINOPHEN 500 MG TAB PO PRN (20:16)
[2018-10-29] MEDS ORDERED: RIVAROXABAN 20 MG TABLET PO SCH (21:00)
[2018-10-29] MEDS ORDERED: Levofloxacin500mg IV 500 MG/100 ML BAG IV SCH (21:00)
[2018-10-30] MEDS: ACETAMINOPHEN 500 MG TAB PO PRN ×2 (01:43→05:08)
[2018-10-30] MEDS: NA CHLORIDE 0.9% 1,000 ML IV SCH (05:09)
[2018-10-30] MEDS ORDERED: THYROID 30 MG TAB PO SCH (06:00)
[2018-10-30] MEDS ORDERED: PANTOPRAZOLE 40MG TABLET PO SCH (06:30)
[2018-10-30] MEDS: INSULIN -REGULAR HUMAN 50 UNIT/0.5 ML ML SQ SCH (07:30)
[2018-10-30] MEDS: COLLAGENASE 30 GM OINTMENT TOP SCH (08:37)
[2018-10-30] MEDS: SPIRONOLACTONE 25 MG TABLET PO SCH (08:38)
[2018-10-30] MEDS: FOLIC ACID 1 MG TABLET PO SCH (08:39)
[2018-10-30] MEDS: POTASSIUM CL SA 10 MEQ TAB PO SCH (08:39)
[2018-10-30] MEDS: FUROSEMIDE 40 MG TABLET PO SCH (08:39)
[2018-10-30] MEDS: LISINOPRIL 10 MG TAB PO SCH (08:40)
[2018-10-30] MEDS: MONTELUKAST 10 MG TAB PO SCH (08:40)
[2018-10-30] MEDS: ALLOPURINOL 100 MG TAB PO SCH (08:40)
--- NOTE | 2018-10-30 09:21 | P.DS ---
Admission Date: 10/28/18 Discharge Date: 10/30/18 Primary Care Provider: Corina Lee Disposition: ROUTINE DISCHARGE Discharge Condition: GOOD Reason for Admission: Cellulitis - Problems (1) Cellulitis Current Visit: Yes Status: Acute Qualifiers: Site of cellulitis of extremity: lower extremity Laterality: left (2) COPD (chronic obstructive pulmonary disease) Current Visit: Yes Status: Acute Qualifiers: COPD type: chronic bronchitis Chronic bronchitis type: simple Qualified Code(s): J41.0 - Simple chronic bronchitis (3) Gout Current Visit: Yes Status: Acute Qualifiers: Gout site: unspecified site Gout etiology: unspecified cause Chronicity: chronic Presence of tophus: without tophus Qualified Code(s): M1A.9XX0 - Chronic gout, unspecified, without tophus (tophi) (4) Diabetes Current Visit: No Status: Acute Qualifiers: Diabetes mellitus type: type 2 Diabetes mellitus exterminator insulin use: without exterminator use Diabetes mellitus complication status: with diabetic arthropathy Diabetes mellitus complication detail: with neuropathic arthropathy Qualified Code(s): E11.610 - Type 2 diabetes mellitus with diabetic neuropathic arthropathy (5) Diabetic foot ulcer Current Visit: No Status: Acute Brief History of Present Illness: Patient of Corina Gorman. She has a exterminator history of charcot's foot. Being treated by Dr. Dominguez(podiatry). However she was noticing some increasing reddness. Was also complainting of fevers and chills. The patient came to the ER. She was found to have an elevated wbc. No worsening of the ulcer on the plantar surface of the foot. However definite cellulitis of the dorsum. Considering her symptoms. She was admittted for iv antibiotics. Hospital Course: Patient was admitted for cellulitis. Started on iv therapy and fluids. She is improving. WBC is coming down. Will discharge her on oral antibiotics. Get ultrasound of lower extremities. So we can see if she needs revascularization. Corina Lee can refer her to the [facility]. Thank you for allowing us to follow up in her care. Vital Signs/Physical Exam: Temp Pulse Resp BP Pulse Ox 96.5 F L 67 16 100/49 L 97 10/30/18 08:00 10/30/18 08:38 10/30/18 08:00 10/30/18 08:38 10/30/18 08:00 General: Alert, In no apparent distress HEENT: Atraumatic, PERRLA, EOMI Neck: Supple, JVD not distended Respiratory: Clear to auscultation bilaterally, Normal air movement Cardiovascular: Regular rate/rhythm, Normal S1 S2 Gastrointestinal: Normal bowel sounds, No tenderness Musculoskeletal: No tenderness Integumentary: No rashes Neurological: Normal speech, Normal tone, Normal affect Lymphatics: No axilla or inguinal lymphadenopathy Laboratory Data at Discharge: WBC 15.5 K/uL (4.3-10.9) H D 10/29/18 04:21 Hgb 11.7 g/dL (12.0-15.0) L 10/29/18 04:21 Hct 35.6 % (36.0-45.0) L 10/29/18 04:21 Plt Count 303 K/uL (152-406) 10/29/18 04:21 PT 17.3 SECONDS (9.5-12.5) H 10/28/18 15:53 INR 1.49 10/28/18 15:53 APTT 31.7 SECONDS (24.3-36.9) 10/28/18 15:53 Sodium 137 mmol/L (136-145) 10/29/18 04:21 Potassium 4.5 mmol/L (3.5-5.1) 10/29/18 04:21 BUN 36 mg/dL (7-18) H 10/29/18 04:21 Creatinine 1.15 mg/dL (0.55-1.3) 10/29/18 04:21 Glucose 101 mg/dL (74-106) 10/29/18 04:21 Total Bilirubin 0.8 mg/dL (0.2-1.0) 10/28/18 15:53 AST 24 U/L (15-37) 10/28/18 15:53 ALT 27 U/L (12-78) 10/28/18 15:53 Alkaline Phosphatase 119 U/L (45-117) H 10/28/18 15:53 Lipase 55 U/L (73-393) L 10/28/18 15:53 Home Medications: Allopurinol 1 tab PO DAILY 02/18/16 Dexlansoprazole [Dexilant] 60 mg PO DAILY 02/18/16 Folic Acid 1 mg PO DAILY 02/18/16 Lisinopril 10 mg PO DAILY 02/18/16 Montelukast [Singulair*] 1 tab PO DAILY 02/18/16 Potassium Chloride 10 meq PO BID 02/18/16 Rivaroxaban [Xarelto] 1 tab PO BEDTIME 02/18/16 Spironolactone 1 tab PO DAILY 02/18/16 Thyroid,Pork [[place] Thyroid] 1 tab PO DAILY 02/18/16 predniSONE [Prednisone*] 1 mg PO TID 02/18/16 Amox/Clavulanate [Augmentin 875-125 Tab] 875 mg PO BID #20 tab 02/24/16 Doxycycline Hyclate 100 mg PO BID #20 tablet 02/24/16 Hydrocodone/Acetaminophen [Hydrocodon-Acetaminophn 10-325] 1 tab PO DAILYPRN PRN 02/24/16 Hydrocodone/Acetaminophen [Lortab 7.5-325 mg Tablet] 1 each PO Q6HR PRN #30 tablet 02/24/16 traMADol HCL [Ultram*] 1 tab PO DAILYPRN PRN 02/24/16 Furosemide [Lasix*] 80 mg PO BID 02/25/16 Clindamycin HCl [Cleocin HCl] 600 mg PO TID 7 Days #21 capsule 10/30/18 Smz./Tmp. [Bactrim Ds 800 MG/160 MG] 1 each PO BID 10 Days #20 tab 10/30/18 New Medications: Clindamycin HCl [Cleocin HCl] 600 mg PO TID 7 Days #21 capsule Smz./Tmp. [Bactrim Ds 800 MG/160 MG] 1 each PO BID 10 Days #20 tab Diet: ADA Activity: Ad aldo Physician Review: Patient Assessed, Agree with Above Assessment and Plan Time spent managing pt's care (in minutes): 25
[2018-10-30 17:58] VITALS: BP 100/49; TEMP 96.5; O2SAT 95; BMI 55.0
== END 2018-10-30 11:21 | disposition home or self-care (01) ==
LOC: ER 14:52 → ERHOLD 19:07 → INTOOBSV 19:07 → 4TH 21:21
PROVIDERS: ADMIT Internal Medicine; ATTEND Internal Medicine
DX: L03.116 Cellulitis of left lower limb (principal); E11.621 Type 2 diabetes mellitus with foot ulcer; L97.529 Non-pressure chronic ulcer of other part of left foot with unspecified severity; M1A.9XX0 Chronic gout, unspecified, without tophus (tophi); E11.610 Type 2 diabetes mellitus with diabetic neuropathic arthropathy; J44.9 Chronic obstructive pulmonary disease, unspecified
CPT/HCPCS: 36415; 71045; 80048; 80076; 81003; 81015; 82550; 82553; 82962; 83605; 83690; 84145; 84484; 85025; 85610; 85652; 85730; 86140; 87040; 87086; 87088; 93005; 96365; 96366; 96367; 96375; 99285; G0378; J2405; J3370; J3590; J7030